=== PATIENT | female | born 1965 | race Caucasian/White ===

== ENCOUNTER → 2020-12-21 | Emergency (ER) | payer SELFPAY ==
[~2020-12-21] VITALS: Ht 160 cm; Wt 107.0 kg
[~2020-12-21] MED LIST: HYDR-3965 PO; HYDROcodone/acetaminophen 10/325mg tab PO ONE; ONDA4TAB6 PO; ketorolac trometh. 30mg/ml inj. IV ONE; normal saline 1000ML IV soln IVB ONE; ondansetron/PF 4mg/2ml inj IV ONE
[2020-12-21 16:34] LABS: BASOPHILS % (AUTO) 0.1 % (0-1); EOSINOPHILS # (AUTO) 0.1 X10'3 (0-0.9); EOSINOPHILS % (AUTO) 0.8 % (0-6); HEMATOCRIT 44.9 % (35.0-45.0); HEMOGLOBIN 14.9 g/dl (12.0-16.0); LYMPHOCYTES # (AUTO) 1.2 X10'3 (1.1-4.8); LYMPHOCYTES % (AUTO) 11.2 % (21-51); MEAN CORPUSCULAR HEMOGLOBIN 27.1 PG (27.0-31.0); MEAN CORPUSCULAR HGB CONC 33.2 g/dL (33.0-36.5); MEAN CORPUSCULAR VOLUME 81.6 FL (78-98); MEAN PLATELET VOLUME 8.8 FL (7.4-10.4); MONOCYTES # (AUTO) 0.6 X10'3 (0-0.9); MONOCYTES % (AUTO) 5.4 % (2-12); NEUTROPHILS # (AUTO) 8.7 X10'3 (1.8-7.7); NEUTROPHILS % (AUTO) 82.5 % (42-75); PLATELET COUNT 265 X10'3 (140-440); RED BLOOD COUNT 5.51 X10'6 (4.20-5.60); RED CELL DISTRIBUTION WIDTH 14.5 % (11.5-14.5); WHITE BLOOD COUNT 10.6 X10'3 (4.5-11.0)
[2020-12-21 16:55] LABS: ALANINE AMINOTRANSFERASE 35 U/L (12-78); ALBUMIN 4.1 G/DL (3.4-5.0); ALBUMIN/GLOBULIN RATIO 1.1 (1.1-1.5); ALKALINE PHOSPHATASE 120 IU/L (46-116); ANION GAP 9 (8-16); ASPARTATE AMINO TRANSFERASE 24 U/L (10-37); BILIRUBIN,TOTAL 0.5 MG/DL (0.1-1.0); BLOOD UREA NITROGEN 20 MG/DL (7-18); BUN/CREATININE RATIO 24.4 (6.6-38.0); CALCIUM 9.1 MG/DL (8.5-10.1); CHLORIDE 106 MMOL/L (99-107); CREATININE 0.82 MG/DL (0.40-0.90); GLUCOSE 98 MG/DL (70-104); POTASSIUM 3.9 MMOL/L (3.5-5.1); SODIUM 142 MMOL/L (135-145); TOTAL CARBON DIOXIDE 27.2 MMOL/L (24-32); TOTAL PROTEIN 7.8 G/DL (6.4-8.2); eGFR 72 ML/MIN
[2020-12-21 16:57] LABS: LIPASE 125 U/L (73-393); TROPONIN I < 0.04 NG/ML (0.0-0.05)
[2020-12-21 19:54] LABS: CLARITY,URINE CLEAR (Clear); COLOR,URINE YELLOW (Yellow); GLUCOSE, URINE NEGATIVE (Neg); KETONES,URINE NEGATIVE (Neg); LEUKOCYTE ESTERASE ,URINE NEGATIVE (Neg); NITRITES, URINE NEGATIVE (Neg); OCCULT BLOOD,URINE TRACE-LYSED (Neg); PH,URINE 5.5 (4.8-8.0); PROTEIN,URINE NEGATIVE (Neg)
[2020-12-21 19:59] LABS: UA COLLECTION TYPE CLN CATCH MIDSTREAM
[2020-12-21 20:05] LABS: BACTERIA,URINE NONE SEEN /HPF (Neg); MUCUS STRANDS FEW /LPF (Neg); RBC,URINE 0-2 /HPF (0-2); SQUAMOUS EPITHELIAL CELL,UR FEW /LPF (FEW); WBC,URINE 0-4 /HPF (0-4)
[2020-12-21 21:06] VITALS: BP 138/75
== END | disposition home or self-care (01) ==
LOC: ER 15:12
DX: R10.12 Left upper quadrant pain (principal); M54.6 Pain in thoracic spine; J44.9 Chronic obstructive pulmonary disease, unspecified; F12.90 Cannabis use, unspecified, uncomplicated; Z98.890 Other specified postprocedural states; Z88.2 Allergy status to sulfonamides; Z79.899 Other long term (current) drug therapy
CPT/HCPCS: 36415; 74176; 80053; 81001; 83690; 84484; 85025; 96361; 96374; 96375; 99284; J1885; J2405; J7030